=== PATIENT | male | born 1995 | race Caucasian/White ===

== ENCOUNTER 2017-03-16 13:16 | Emergency (ER) | payer OTHER ==
[2017-03-16 13:33] VITALS: BP 145/80; PULSE 85; RESP 16; TEMP 98
[2017-03-16] MEDS ORDERED: IBUPROFEN 800 MG TAB PO STA (13:52)
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
== END 2017-03-16 15:14 | disposition home or self-care (01) ==
LOC: EC 13:16
DX: S62.336A Displaced fracture of neck of fifth metacarpal bone, right hand, initial encounter for closed fracture (principal); W22.03XA Walked into furniture, initial encounter
CPT/HCPCS: 29125; 99283

== ENCOUNTER 2020-05-16 17:15 | Emergency (ER) | payer BC ==
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
[2020-05-16 18:23] LABS: Amphetamine Screen,Urine Detected (NotDetected); Barbiturate Screen,Urine Not Detected (NotDetected); Benzodiazepines Screen,Urine Detected (NotDetected); Cocaine Screen,Urine Detected (NotDetected); Methadone Screen, Urine Not Detected (NotDetected); Opiate Screen,Urine Not Detected (NotDetected); Oxycodone Screen, Urine Not Detected (NotDetected); Phencyclidine Screen,Urine Not Detected (NotDetected); Tricyclic Antidepressant,Urine Not Detected (NotDetected); Urn Cannabinoid Scrn Detected (NotDetected)
--- NOTE | 2020-05-16 18:58 | XR ---
EXAMINATION TYPE: XR chest 2V DATE OF EXAM: 05/16/2020 COMPARISON: NONE HISTORY: Short of breath TECHNIQUE: 2 views FINDINGS: Heart and mediastinum are normal. Lungs are clear. Diaphragm is normal. Bony thorax appears normal. IMPRESSION: Normal chest.
[2020-05-16 19:49] VITALS: RESP 16
[2020-05-16 22:55] VITALS: BP 148/94; PULSE 88; TEMP 99.2
== END 2020-05-16 22:53 | disposition home or self-care (01) ==
LOC: EC 17:15
DX: T42.4X1A Poisoning by benzodiazepines, accidental (unintentional), initial encounter (principal); T40.2X1A Poisoning by other opioids, accidental (unintentional), initial encounter; T40.1X1A Poisoning by heroin, accidental (unintentional), initial encounter; T40.5X1A Poisoning by cocaine, accidental (unintentional), initial encounter; F32.9 Major depressive disorder, single episode, unspecified; Z91.038 Other insect allergy status
CPT/HCPCS: 36415; 71046; 80306; 80307; 82075; 93005; 99285

== ENCOUNTER 2020-08-24 21:40 | Emergency (ER) | payer OTHER, BC ==
[2020-08-24 21:55] LABS: Glucose,Whole Blood 116 mg/dL (75-99)
[2020-08-24] MEDS ORDERED: DIPH,PERTUS(ACELL)TETVAC-LF 0.5 ML VIAL IM ONE (22:02)
[2020-08-24] MEDS ORDERED: SODIUM CHLORIDE 0.9% 500 ML 500 ML IV STA (22:02)
[2020-08-24] MEDS ORDERED: MORPHINE SULFATE 4 MG/ML SYRINGE IV STA (22:03)
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
[2020-08-24 22:28] LABS: Basophils # (A) 0.2 k/uL (0-0.2); Basophils % (A) 1 %; Eosinophils # (A) 0.1 k/uL (0-0.7); Eosinophils % (A) 0 %; HCT 50.5 % (39.0-53.0); HGB 17.3 gm/dL (13.0-17.5); Lymphocytes # (A) 1.8 k/uL (1.0-4.8); Lymphocytes % (A) 8 %; MCH 30.2 pg (25.0-35.0); MCHC 34.2 g/dL (31.0-37.0); MCV 88.3 fL (80.0-100.0); Mean Platelet Volume 8.9; Monocytes # (A) 1.2 k/uL (0-1.0); Monocytes % (A) 5 %; Neutrophils # (A) 18.1 k/uL (1.3-7.7); Neutrophils % (A) 85 %; Platelet Count 261 k/uL (150-450); RBC 5.72 m/uL (4.30-5.90); RDW 12.3 % (11.5-15.5); WBC 21.4 k/uL (3.8-10.6)
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
[2020-08-24 22:41] LABS: Partial Thromboplastin Time 24.7 sec (22.0-30.0); Prothrombin Time 10.6 sec (9.0-12.0)
[2020-08-24 22:42] LABS: ALT 52 U/L (4-49); AST 40 U/L (17-59); African American GFR (CKD) >90 (>60 ml/min/1.73 sqM); Alcohol <10 mg/dL; Alkaline Phosphatase 91 U/L (38-126); Anion Gap 10 mmol/L; Blood Urea Nitrogen 17 mg/dL (9-20); Calcium 9.9 mg/dL (8.4-10.2); Carbon Dioxide 27 mmol/L (22-30); Chloride 103 mmol/L (98-107); Glucose 87 mg/dL (74-99); Non-African American GFR(CKD) >90 (>60 ml/min/1.73 sqM); Potassium 4.4 mmol/L (3.5-5.1); Sodium 140 mmol/L (137-145); Total Bilirubin 0.5 mg/dL (0.2-1.3); Total Protein 8.2 g/dL (6.3-8.2)
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
[2020-08-24] MEDS ORDERED: HYDROmorphone 0.5 MG/0.5 ML SYRINGE IVP STA (23:43)
[2020-08-25 00:53] VITALS: BP 133/84; PULSE 88; RESP 17; TEMP 99.2
== END 2020-08-25 01:00 | disposition other institution (70) ==
LOC: EC 21:40
DX: T23.202A Burn of second degree of left hand, unspecified site, initial encounter (principal); S20.219A Contusion of unspecified front wall of thorax, initial encounter; Z91.030 Bee allergy status; V43.52XA Car driver injured in collision with other type car in traffic accident, initial encounter; Y92.410 Unspecified street and highway as the place of occurrence of the external cause
CPT/HCPCS: 36415; 93005; 86900; 86901; 80053; 83605; 84484; 85025; 85610; 85730; 86850; 80320; 72170; 71045; 74177; 99285; 96374; 96375; 96361; L0120; J2270; J1170; Q9967

== ENCOUNTER 2021-01-17 15:34 | Emergency (ER) | payer BC ==
[2021-01-17 16:25] VITALS: BP 114/74; PULSE 102; RESP 18; TEMP 98.6
--- NOTE | 2021-01-17 16:29 | ED ---
General Adult HPI - General Stated complaint: Covid+/dizzy/fever/body aches Time Seen by Provider: 01/17/21 16:23 Source: patient, RN notes reviewed Mode of arrival: ambulatory Limitations: no limitations - History of Present Illness Initial comments: This a 25-year-old male presents emergency from chief complaint of possible covert. Patient states he started with symptoms a days ago. Patient has no symptoms. Her history. Patient states she's had fevers chills bodies cough congestion shortness of breath. Patient does not take any current medications. Patient does have mild GI symptoms. No calf pain no leg swelling no history of PE or DVT. - Related Data Home Medications Medication Instructions Recorded Confirmed No Known Home Medications 05/16/20 08/24/20 Allergies Allergy/AdvReac Type Severity Reaction Status Date / Time insect venom Allergy Anaphylaxis Verified 01/17/21 16:22 Review of Systems ROS Statement: Those systems with pertinent positive or pertinent negative responses have been documented in the HPI. ROS Other: All systems not noted in ROS Statement are negative. Past Medical History Past Medical History: No Reported History Additional Past Medical History / Comment(s): megacolon History of Any Multi-Drug Resistant Organisms: None Reported Past Surgical History: No Surgical Hx Reported Past Psychological History: ADD/ADHD, Bipolar Smoking Status: Never smoker Past Alcohol Use History: None Reported Past Drug Use History: Marijuana General Exam Limitations: no limitations General appearance: alert, in no apparent distress, obese Head exam: Present: atraumatic, normocephalic, normal inspection Eye exam: Present: normal appearance, PERRL, EOMI. Absent: scleral icterus, conjunctival injection, periorbital swelling ENT exam: Present: normal exam, normal oropharynx, mucous membranes moist Neck exam: Present: normal inspection, full ROM. Absent: tenderness, meningismus, lymphadenopathy Respiratory exam: Present: normal lung sounds bilaterally. Absent: respiratory distress, wheezes, rales, rhonchi, stridor Cardiovascular Exam: Present: regular rate, normal rhythm, normal heart sounds. Absent: systolic murmur, diastolic murmur, rubs, gallop, clicks Course Vital Signs 01/17/21 16:22 Temperature 98.6 F Pulse Rate 102 H Respiratory 18 Rate Blood Pressure 114/74 O2 Sat by Pulse 98 Oximetry Medical Decision Making - Medical Decision Making Patient's is positive for covid, patient will receive monoclonal antibody and will be discharged in stable condition. Disposition Clinical Impression: COVID-19 Disposition: HOME SELF-CARE Condition: Stable Instructions (If sedation given, give patient instructions): Coronavirus Disease 2019 (COVID-19) Additional Instructions: Please return to the Emergency Department if symptoms worsen or any other concerns. Is patient prescribed a controlled substance at d/c from ED?: No Referrals: None,Stated [Primary Care Provider] - 1-2 days Time of Disposition: 16:53
[2021-01-17] MEDS ORDERED: SODIUM CHLORIDE 0.9% 1,000 ML IV ONE (16:52)
[2021-01-17] MEDS ORDERED: BAMLANIVIMAB (EUA) 700 MG, ETESEVIMAB (EUA) 1,400 MG in SODIUM CHLORIDE 0.9% 50 ML IVPB ONE (18:00)
[2021-01-17] MEDS ORDERED: SODIUM CHLORIDE 0.9% 50 ML IVPB ONE (18:00)
== END 2021-01-17 19:25 | disposition home or self-care (01) ==
LOC: EC 15:34
DX: U07.1 COVID-19 (principal); F12.90 Cannabis use, unspecified, uncomplicated
CPT/HCPCS: 99284

== ENCOUNTER 2021-12-24 06:10 | Emergency (ER) | payer BC ==
[2021-12-24 06:20] VITALS: RESP 18
--- NOTE | 2021-12-24 06:34 | ED ---
Overdose HPI - General Chief Complaint: Overdose Stated Complaint: Overdose Time Seen by Provider: 12/24/21 06:12 Source: patient, EMS, RN notes reviewed Mode of arrival: EMS Limitations: no limitations - History of Present Illness Initial Comments: This a 26-year-old male presents emergency Department via EMS due to complaints of drug overdose. Patient states he snorted 30 mg OxyContin tablet. He states does have a history of overdose. Patient states that he just feels tired, feels nauseated this time. Patient was given 2 mg Narcan by EMS. Upon arrival of the noted him to have good pulse, patient had shallow breathing with minimal responsive at that time. Patient given Narcan and greatly improved. Patient denies being suicidal or homicidal. Patient states he feels drugs and regular basis. - Related Data Home Medications Medication Instructions Recorded Confirmed No Known Home Medications 05/16/20 08/24/20 Allergies Allergy/AdvReac Type Severity Reaction Status Date / Time insect venom Allergy Anaphylaxis Verified 01/17/21 16:22 Review of Systems ROS Statement: Those systems with pertinent positive or pertinent negative responses have been documented in the HPI. ROS Other: All systems not noted in ROS Statement are negative. Past Medical History Past Medical History: No Reported History Additional Past Medical History / Comment(s): megacolon History of Any Multi-Drug Resistant Organisms: None Reported Past Surgical History: No Surgical Hx Reported Past Psychological History: ADD/ADHD, Bipolar Smoking Status: Never smoker Past Alcohol Use History: None Reported Past Drug Use History: Marijuana General Exam General appearance: alert, in no apparent distress Head exam: Present: atraumatic, normocephalic, normal inspection Eye exam: Present: normal appearance, PERRL, EOMI. Absent: scleral icterus, conjunctival injection, periorbital swelling ENT exam: Present: normal exam, normal oropharynx, mucous membranes moist Neck exam: Present: normal inspection, full ROM. Absent: tenderness, meningismus, lymphadenopathy Respiratory exam: Present: normal lung sounds bilaterally. Absent: respiratory distress, wheezes, rales, rhonchi, stridor Cardiovascular Exam: Present: regular rate, normal rhythm, normal heart sounds. Absent: systolic murmur, diastolic murmur, rubs, gallop, clicks GI/Abdominal exam: Present: soft, normal bowel sounds. Absent: distended, tenderness, guarding, rebound, rigid Neurological exam: Present: alert, oriented X3 Skin exam: Present: warm, dry, intact, normal color. Absent: rash Course Vital Signs 12/24/21 06:15 Temperature 98.0 F Pulse Rate 107 H Respiratory 18 Rate Blood Pressure 133/73 O2 Sat by Pulse 94 L Oximetry Medical Decision Making - Medical Decision Making Patient presented for opiate overdose. Patient started oxycodone. Patient was given Narcan patient was observed in emergency department with no decreased mentation. Patient's we discharged in stable condition return parameters were discussed. Disposition Clinical Impression: Opiate overdose Disposition: HOME SELF-CARE Condition: Stable Instructions (If sedation given, give patient instructions): Adult Overdose (ED) Additional Instructions: Please return to the Emergency Department if symptoms worsen or any other concerns. Is patient prescribed a controlled substance at d/c from ED?: No Referrals: None,Stated [Primary Care Provider] - 1-2 days Time of Disposition: 07:13
[2021-12-24 07:50] VITALS: BP 108/80; PULSE 101; TEMP 98.9
== END 2021-12-24 07:50 | disposition home or self-care (01) ==
LOC: EC 06:10
DX: T40.2X1A Poisoning by other opioids, accidental (unintentional), initial encounter (principal); F90.9 Attention-deficit hyperactivity disorder, unspecified type; F31.9 Bipolar disorder, unspecified; F12.90 Cannabis use, unspecified, uncomplicated
CPT/HCPCS: 99284

== ENCOUNTER 2024-05-12 14:19 | Emergency (ER) | payer BC | END 2024-05-12 14:51 | disposition home or self-care (01) | LOC: EC 14:19 | DX: L60.0 Ingrowing nail (principal) | CPT/HCPCS: 99282 ==

== ENCOUNTER 2024-09-11 08:25 | Emergency (ER) | payer BC, OTHER ==
--- NOTE | 2024-09-11 08:48 | ED ---
Skin/Abscess/FB HPI - General Chief complaint: Skin/Abscess/Foreign Body Stated complaint: Allergic Reaction Time Seen by Provider: 09/11/24 08:40 Source: patient, RN notes reviewed Mode of arrival: ambulatory Limitations: no limitations - History of Present Illness Initial comments: This is a 28-year-old male who presents to the emergency department for concerns of hives. States that he finished a course of Keflex about 5 days ago that he was prescribed to take following an ingrown toenail surgery. States that shortly after finishing the Keflex he started to break out in hives all over his body. These were both painful and itchy. States that they occurred on the upper and lower extremities as well as the abdomen and back. He took Benadryl a nd ibuprofen with some improvement in symptoms, however they have continued to recur each day. He did take 50 mg of Benadryl about an hour prior to arrival. Denies any chest pain or shortness of breath. Does not believe that he has ever taken Keflex before. He has never taken penicillin, but states that his family is allergic to it. MD complaint: rash - Related Data Previous Rx's Medication Instructions Recorded Famotidine 40 mg PO DAILY 5 Days #5 tablet 09/11/24 Triamcinolone 0.5% Cream [Kenalog 1 applic TOPICAL QID PRN #30 gm 09/11/24 0.5% Cream] predniSONE 50 mg PO DAILY 5 Days #5 tab 09/11/24 Allergies Allergy/AdvReac Type Severity Reaction Status Date / Time bee venom protein (honey bee) Allergy Anaphylaxis Verified 09/11/24 08:32 insect venom Allergy Anaphylaxis Verified 09/11/24 08:32 Review of Systems ROS Statement: Those systems with pertinent positive or pertinent negative responses have been documented in the HPI. ROS Other: All systems not noted in ROS Statement are negative. Past Medical History Past Medical History: No Reported History Additional Past Medical History / Comment(s): megacolon History of Any Multi-Drug Resistant Organisms: None Reported Past Surgical History: No Surgical Hx Reported Past Psychological History: ADD/ADHD, Bipolar Smoking Status: Never smoker Past Alcohol Use History: None Reported Past Drug Use History: Marijuana General Exam Limitations: no limitations General appearance: alert, in no apparent distress Head exam: Present: atraumatic, normocephalic, normal inspection Respiratory exam: Present: normal lung sounds bilaterally. Absent: respiratory distress, wheezes, rales, rhonchi, stridor Cardiovascular Exam: Present: regular rate, normal rhythm, normal heart sounds. Absent: systolic murmur, diastolic murmur, rubs, gallop, clicks Neurological exam: Present: alert, oriented X3, CN II-XII intact Psychiatric exam: Present: normal affect, normal mood Skin exam: Present: other (Urticaria to the bilateral upper and lower extremities and trunk) Course Vital Signs 09/11/24 09/11/24 09/11/24 08:32 09:12 10:02 Temperature 98.3 F 98.5 F Pulse Rate 118 H 114 H 98 Respiratory 20 19 20 Rate Blood Pressure 143/101 141/100 140/82 O2 Sat by Pulse 98 98 98 Oximetry 09/11/24 10:23 Temperature 98.6 F Pulse Rate 105 H Respiratory 21 Rate Blood Pressure 112/84 O2 Sat by Pulse 96 Oximetry Medical Decision Making - Medical Decision Making This is a 28-year-old male who presents to the emergency department for a rash. Was pt. sent in by a medical professional or institution? @ -No Did you speak to anyone other than the patient for history? @ -No Did you review nursing and triage notes? @ -Yes, and I agree, it is accurate with regards to the patient's symptoms. Were old charts reviewed? @ -No Differential Diagnosis? @ -Roseola, measles, Lyme disease, erythema multiforme, cellulitis, toxic shock syndrome, Ernie Aureliano syndrome, Kawasaki disease, ricardo mountain spotted fever, contact dermatitis, allergic dermatitis, measles, mumps, rubella, varicella, meningococcal disease, drug reaction, coxsackievirus, This is not meant to be an all-inclusive list. EKG interpreted by me (3pts min.)? @ -Not obtained X-rays interpreted by me (1pt min.)? @ -Not obtained CT interpreted by me (1pt min.)? @ -Not obtained U/S interpreted by me (1pt. min.)? @ -Not obtained What testing was considered but not performed? (CT, X-rays, U/S, labs)? Why? @ -None What meds were considered but not given? Why? @ -None Did you discuss the management of the patient with other professionals? @ -No Did you reconcile home meds? @ -No Was smoking cessation discussed for >3mins.? @ -No Was critical care preformed (if so, how long)? @ -No Were there social determinants of health that impacted care today? How? (Homelessness, low income, unemployed, alcoholism, drug addiction, transportation, low edu. Level, literacy, decrease access to med. care, [facility], rehab)? @ -No Was there de-escalation of care discussed even if they declined? (Discuss DNR or withdrawal of care, Hospice)? @ -No What co-morbidities impacted this encounter? (DM, HTN, Smoking, COPD, CAD, Cancer, CVA, Hep., AIDS, mental health diagnosis, sleep apnea, morbid obesity)? @ -None Was patient admitted / discharged? @ -Discharged. Physical examination consistent with urticaria. He had taken 50 mg of Benadryl prior to arrival. He was given 125 mg of Solu-Medrol and famotidine. Prescription for an additional 5-day course of famotidine and prednisone provided. Advised he continue to take Benadryl every 4-6 hours as well. Triamcinolone cream prescribed to be used as more of a spot treatment on the most bothersome areas. Advised follow-up with his PCP for reevaluation. Patient discharged home in stable condition. Case discussed with ED attending Dr. Zuleta. Return precautions reviewed in depth, the patient is instructed to return to the emergency department with any new, worsening, or concerning symptoms. Patient verbalized understanding. Undiagnosed new problem with uncertain prognosis? @ -None Drug Therapy requiring intensive monitoring for toxicity (Heparin, Nitro, Insulin, Cardizem)? @ -None Were any procedures done? @ -None Diagnosis/symptom? @ -Urticaria due to drug Acute, or Chronic, or Acute on Chronic? @ -Acute Uncomplicated (without systemic symptoms) or Complicated (systemic symptoms)? @ -Uncomplicated Side effects of treatment? @ -None Exacerbation, Progression, or Severe Exacerbation] @ -Not applicable Poses a threat to life or bodily function? @ -No Disposition Clinical Impression: Urticaria due to drug allergy Disposition: HOME SELF-CARE Instructions (If sedation given, give patient instructions): Urticaria (ED) Additional Instructions: Return to the emergency department with any new, worsening, or concerning symptoms. Take the prednisone and famotidine daily for 5 days. Continue to take Benadryl every 4-6 hours. You can apply the triamcinolone cream up to 4 times daily to the most bothersome areas. Follow up with your primary care provider in 1-2 days. Prescriptions: Famotidine 40 mg PO DAILY 5 Days #5 tablet Triamcinolone 0.5% Cream [Kenalog 0.5% Cream] 1 applic TOPICAL QID PRN #30 gm PRN Reason: Itching predniSONE 50 mg PO DAILY 5 Days #5 tab Is patient prescribed a controlled substance at d/c from ED?: No Referrals: None,Stated [Primary Care Provider] - 1-2 days Time of Disposition: 10:15
[2024-09-11] MEDS: FAMOTIDINE 20 MG TAB PO STA (09:03)
[2024-09-11] MEDS: methylPREDNISolone SOD SUCCI 125 MG/2 ML VIAL IM ONE (09:05)
[2024-09-11 10:25] VITALS: BP 112/84; PULSE 105; RESP 21; TEMP 98.6
== END 2024-09-11 10:25 | disposition home or self-care (01) ==
LOC: EC 08:25
DX: L50.0 Allergic urticaria (principal); Z91.030 Bee allergy status
CPT/HCPCS: 99283; 96372; J2919

== ENCOUNTER → 2025-01-11 | Outpatient (CLI) | payer OTHER ==
[2025-01-11 18:13] LABS: HCT 49.4 % (39.6-50.0); HGB 15.9 g/dL (13.0-17.0); MCH 28.4 pg (27.0-32.0); MCHC 32.2 g/dL (32.0-37.0); MCV 88.4 FL (80.0-97.0); Mean Platelet Volume 11.8 FL (9.5-12.2); NRBC Per 100 WBC 0 X 10*3/uL (0.00-0.01); Platelet Count 247 X 10*3/uL (140-440); RBC 5.59 X 10*6/uL (4.40-5.60); RDW 12.2 % (11.5-14.5); WBC 6.77 X 10*3/uL (4.50-10.00)
[2025-01-11 18:14] LABS: Basophils # (A) 0.03 X 10*3/uL (0.00-0.10); Basophils % (A) 0.4 %; Eosinophils % (A) 1.5 %; Lymphocytes # (A) 2.33 X 10*3/uL (0.90-5.00); Lymphocytes % (A) 34.4 %; Monocytes # (A) 0.61 X 10*3/uL (0.20-1.00); Neutrophils # (A) 3.66 X 10*3/uL (1.80-7.70); Neutrophils % (A) 54.1 %
[2025-01-11 19:10] LABS: ALT 61 U/L (10-49); AST 29 U/L (14-35); Albumin 4.4 g/dL (3.8-4.9); Albumin/Globulin Ratio 1.57 Ratio (1.60-3.17); Alkaline Phosphatase 81 U/L (41-126); BUN/Creat Ratio 12.33 Ratio (12.00-20.00); Blood Urea Nitrogen 11.1 mg/dL (9.0-27.0); Calcium 9.5 mg/dL (8.7-10.3); Carbon Dioxide 22.3 mmol/L (21.6-31.8); Chloride 105 mmol/L (96-109); Chol/HDL Ratio 5.79 Ratio; Globulin 2.8 g/dL (1.6-3.3); Glucose 111 mg/dL (70-110); LDL Cholesterol,Calculated 92.3 mg/dL (0.0-131.0); Potassium 4.1 mmol/L (3.5-5.5); Sodium 141 mmol/L (135-145); Total Bilirubin 0.5 mg/dL (0.3-1.2); Total Protein 7.2 g/dL (6.2-8.2)
[2025-01-11 19:11] LABS: Prostate Specific Antigen 0.32 ng/mL (0.000-2.500)
== END | disposition home or self-care (01) ==
LOC: LABWHC1 13:16
PROVIDERS: ATTEND Family Medicine
DX: Z00.00 Encounter for general adult medical examination without abnormal findings (principal); I10 Essential (primary) hypertension; Z79.899 Other long term (current) drug therapy
CPT/HCPCS: 36415; 80053; 80061; 82785; 83036; 84153; 84443; 84681; 85025